=== PATIENT | female | born 1980 | race Two or more races ===

== ENCOUNTER 2018-04-30 14:10 | Outpatient (CLI) | payer OTHER | END 2018-04-30 14:29 | disposition home or self-care (01) | LOC: LAB 14:10 | DX: R50.9 Fever, unspecified (principal); J11.1 Influenza due to unidentified influenza virus with other respiratory manifestations ==

== ENCOUNTER 2020-12-24 04:37 | Emergency (ER) | payer OTHER ==
[~2020-12-24] VITALS: Ht 154.9 cm; Wt 122.5 kg
== END 2020-12-24 14:46 | disposition home or self-care (01) ==
LOC: ER 04:37
DX: R06.09 Other forms of dyspnea (principal); G47.33 Obstructive sleep apnea (adult) (pediatric); Z03.818 Encounter for observation for suspected exposure to other biological agents ruled out